=== PATIENT | male | born 1985 | race Caucasian/White ===

== ENCOUNTER → 2017-09-09 | Day surgery (SDC) | payer OTHER ==
[2017-09-08 13:43] VITALS: BMI 36.6
[~2017-09-09] MED LIST: Bupivacaine/Epinephrine 0.25% 30 ML VIAL ONE; CEFAZOLIN/Water 2 GM/20 ML SYRINGE ONE; Fentanyl 100 MCG/2 ML VIAL ONE; Glycopyrrolate 0.2 MG/ML 5 ML SYRINGE ONE; HYDROcodone/Acetaminophen 5/325 mg Tablet ONE; Ketorolac Tromethamine 30 MG/ML VIAL ONE; Lidocaine 1% PF 5 ML VIAL ONE; Midazolam HCl 2 mg/2 ml Vial ONE; Ondansetron HCl/PF 4 MG/2 ML Vial ONE; Propofol 200 MG/20 ML VIAL ONE
--- NOTE | 2017-09-09 22:16 | OP ---
DATE OF PROCEDURE: 09/09/2017 PREOPERATIVE DIAGNOSIS: Ligament tear of the right wrist. POSTOPERATIVE DIAGNOSIS: Ligament tear of the right wrist, posttraumatic arthritis of the hamate. PROCEDURES: 1. Diagnostic arthroscopy of the wrist with debridement. 2. Open repair of the TFCC peripheral tear. 3. Osteotomy and resection of the proximal hamate. 4. Partial wrist denervation. SURGEON: Kobe Mcdaniels M.D. DESCRIPTION OF PROCEDURE: The patient was brought to the operating room and after administration of general anesthetic intubation, the right upper extremity was prepped and draped in the usual fashion and the tourniquet was inflated. The wrist was then placed in the traction tower with 15 pounds of v ertical traction towards the ceiling. The arthroscopic portals were established and the ones used we re the 3-4, the 4-5, the 5R, the 5U and 2 midcarpal portals. The arthroscope was inserted into the w rist joint and the arthroscopy was performed dry. The radiocarpal joint looked entirely normal throu gh the 3-4 portal. I put the scope in the 4-5 portal and used a probe in the 6U portal to block the TFCC and it did appear a bit loose. There were no central tears or radial sided tears, but on the do rsal and ulnar sides, there was a lot of fibrous tissue and scar tissue. When it was debrided and pr suha, it appeared to be a bit flimsy and it did appear to be an old peripheral tear of the TFCC. Thi s was debrided further and then repaired by an open technique. The scope was removed after taking multiple photographs. An incision was made over the fifth dorsal compartment and the extensor digiti quinti were released from its tendon sheath. The retinaculum was then opened up and the ulnar carpal and metacarpal joints were both exposed. The peripheral tear wa s exposed dorsally and ulnarly and the underlying ulna was curetted. Two mattress sutures using #2 F iberWire were placed in the periphery of the TFCC and then a PushLock anchor was used to secure them down. The TFCC appeared to be quite stable and taut after this was done. The wound was irrigated an d the capsule was closed with 3-0 Vicryl. The proximal articular surface of the hamate was pitted and eburnated and clearly had posttraumatic a rthritis involving it. Using an osteotome 3 mm of the proximal hamate were resected along the proxim al articular surface from the capitate out peripherally to where good cartilage was found articulatin g with the ulnar side of the triquetrum. The lunotriquetral ligament was completely intact as was th e scapholunate ligament. This has been confirmed during the arthroscopy. The capsule was loosely ap proximated after washing out the mid carpal joint and getting all the debris out from the osteotomy. Three incisions were used to do the denervation. The first one was made longitudinally over Driss's tubercle and the retinaculum was opened to the fourth compartment and the posterior interosseous ner ve was identified and resected with an electrocautery. Through the incision on the ulnar side that w as used to repair the ligament, the interosseous space was identified, opened up and the anterior int erosseous nerve was cauterized and resected. The sensory branch of the ulnar nerve was identified th rough a separate incision and the articular branches to the wrist joint were identified and resected with a cautery. A 2 cm incision was made on the volar side of the wrist over the ulnar artery and it was identified and a sympathectomy of the ulnar artery was performed. The ulnar nerve was identifie d, but not disturbed. The wounds were all irrigated and the retinaculum was repaired over the fourth dorsal compartment. The skin incisions were then closed with interrupted and running 4-0 nylon. Th e bridge between the two dorsal incisions was inspected and appeared to be viable. A well-padded bul ky hand dressing with a long arm plaster splint was applied with the wrist in slight supination. The patient was taken to recovery room in satisfactory condition. He was monitored. When he was awake and stable, he was discharged home. He was given a prescription for pain medication, wound care instructions, and a followup appointment.
== END ==
LOC: SDC 10:02
PROVIDERS: ATTEND Orthopaedic Surgery
PROC: 018 Peripheral Nervous System, Division (ICD-10-PCS; principal; 2017-09-09)
PROC: 0XBG0ZZ Excision of Right Wrist Region, Open Approach (ICD-10-PCS; principal; 2017-09-09)
PROC: 0RCN0ZZ Extirpation of Matter from Right Wrist Joint, Open Approach (ICD-10-PCS; principal; 2017-09-09)
DX: S63.591A Other specified sprain of right wrist, initial encounter (principal); M19.131 Post-traumatic osteoarthritis, right wrist; Z98.890 Other specified postprocedural states
CPT/HCPCS: 76000; 96374; C1713; J1885; J2001; J2250; J2405; J2704; J3010

== ENCOUNTER 2022-11-11 14:09 | Outpatient (CLI) | payer OTHER | END 2022-11-11 14:10 | disposition home or self-care (01) | LOC: TBSIIMAG 14:09 | PROVIDERS: ATTEND Orthopaedic Surgery | DX: M23.91 Unspecified internal derangement of right knee (principal); S83.241A Other tear of medial meniscus, current injury, right knee, initial encounter; M22.8X1 Other disorders of patella, right knee ==